=== PATIENT | male | born 1960 | race Caucasian/White ===

== ENCOUNTER 2019-10-12 07:38 | Day surgery (SDC) | payer OTHER ==
[~2019-10-12] VITALS: Ht 188 cm; Wt 112.0 kg
[~2019-10-12 07:38] MED LIST: ADDERALL 30 MG30 MG PO; BENAZEPRIL HCL20 MG PO; CYCLOBENZAPRINE10 MG PO; FLOVENT DISKUS50 MCG INH; HYDROCODON-ACE1 EAC8 PO; MOBIC15 MG PO; TRIAMTERENE-HC1 EAC1 PO
--- NOTE | 2019-10-12 10:31 | NUR ---
10/12/19 Jose1 Betty Del Valle 1025-PATIENT ARRIVED TO PACU ON 2L NC RR EVEN. LAYING LEFT LATERAL. PATIENT DROWSY AWAKE DENIES PAIN OR NAUSEA. ABDOMEN SOFT. IVF INFUSING
--- NOTE | 2019-10-12 11:19 | OR ---
[facility] [address], [place] [address] Signed DATE OF OPERATION: 10/12/2019 SURGEON: Tyson Sharma MD PREOPERATIVE DIAGNOSES: 1. Personal history of colonic polyps in 2006 and 2013. 2. Internal hemorrhoids. POSTOPERATIVE DIAGNOSES: 1. 5 mm sessile polyp next to ileocecal valve. 2. 4 mm polyp, proximal right colon. 3. 3 mm polyps x5 at 10-15 cm (rectum). 4. Minimal internal hemorrhoids. 5. Red blood-appearing fluid throughout colon. PROCEDURE: Colonoscopy with hot biopsy. ESTIMATED BLOOD LOSS: None. FINDINGS: Farhat appeared to have areas of red blood throughout his entire colon. Yet, we found no evidence of any bleeding and certainly no bloody fluid came through the ileocecal valve as we were working. INDICATIONS: Farhat is a 59-year-old gentleman, who has a personal history of adenomatous polyps in 2006 and in 2013. He has been on the five year schedule. He is known to have internal hemorrhoids as well. There is no family history of colon cancer or polyps. He said he is down 46 pounds since he injured his back. He does use hydrocodone 10 mg on a daily basis. However, he did well last time and so he wanted to go ahead with Versed and fentanyl on this occasion. In the office, I gave him a pamphlet on colonoscopy. We looked at that together in detail. He understands the nature of the test along with the risks including, but not limited to gas, bloating, crampy abdominal pain, bleeding, perforation requiring surgery, and missed diagnosis. We also reviewed the need for the IV conscious sedation. He had expressed understanding and wished to proceed. PROCEDURE NOTE: Farhat was taken into our endoscopy suite and placed in the left lateral decubitus Electronically Signed By: TYSON SHARMA MD 10/12/19 1119 PATIENT NAME: FARHAT PASTOR OPERATIVE REPORT DATE OF : 56 REPORT #: [id number] PHYSICIAN: TYSON SHARMA MD PCP: CHRISTOPHER QUIROZ MD REPORT IS CONFIDENTIAL AND NOT TO BE RELEASED WITHOUT AUTHORIZATION [facility] [address], [place] [address] Signed position. He was given a total of 12 mg of Versed and 200 mcg of fentanyl to cover the case. A digital rectal exam was performed and he does have a slightly enlarged, slightly indurated prostate gland. The adult colonoscope was introduced and advanced under direct visualization of the camera into the cecum itself. It took some extra sedation and abdominal compression to get the scope directly into the cecum. Interestingly, he seemed to have blood in pools throughout his colon. We spent quite a bit of time around the cecum and the ileocecal valve, and we never saw any fluid coming through the ileocecal valve. We irrigated out the cecum completely and there was no evidence of any issues in the cecum itself. We could easily see the appendiceal orifice and the ileocecal valve. The scope was slowly withdrawn and we removed the above mentioned polyps with the help of hot biopsy forceps without difficulty. He has no diverticulosis that we could see. No active bleeding from anywhere in the entire colon or rectum. Once in the rectum, the scope had been retroflexed and he does have [id number] internal hemorrhoid columns. After this, the gas was suctioned out and the colonoscope removed. Farhat tolerated procedure quite well. RECOMMENDATIONS: I will see Farhat back in my office in 7 to 14 days to review his results. He is not to take any aspirin or NSAIDs including his meloxicam for an entire week. Tyson Sharma MD ALB/MODL /[id number] cc: MD Christopher Panchal MD Copies: TYSON SHARMA MD, RUSSELL BARR MD ~ Electronically Signed By: TYSON SHARMA MD 10/12/19 1119 PATIENT NAME: FARHAT PASTOR OPERATIVE REPORT DATE OF : 56 REPORT #: [id number] PHYSICIAN: TYSON SHARMA MD PCP: CHRISTOPHER QUIROZ MD REPORT IS CONFIDENTIAL AND NOT TO BE RELEASED WITHOUT AUTHORIZATION
== END 2019-10-12 11:10 | disposition home or self-care (01) ==
LOC: OPS 07:38 → DS 07:42 → OPS 09:00 → DS 09:00 → OPS 11:10
PROVIDERS: Colon & Rectal Surgery
PROC: 0DBE8ZZ Excision of Large Intestine, Via Natural or Artificial Opening Endoscopic (ICD-10-PCS; 2019-10-12)
PROC: 0DBC8ZZ Excision of Ileocecal Valve, Via Natural or Artificial Opening Endoscopic (ICD-10-PCS; 2019-10-12)
PROC: 0DBK8ZZ Excision of Ascending Colon, Via Natural or Artificial Opening Endoscopic (ICD-10-PCS; principal; 2019-10-12 09:00)
DX: Z12.11 Encounter for screening for malignant neoplasm of colon (principal); D12.2 Benign neoplasm of ascending colon; D12.0 Benign neoplasm of cecum; K63.5 Polyp of colon; K64.8 Other hemorrhoids; E66.9 Obesity, unspecified; R73.03 Prediabetes; N40.0 Benign prostatic hyperplasia without lower urinary tract symptoms; Z86.010 Personal history of colon polyps; Z79.899 Other long term (current) drug therapy; Z79.51 Long term (current) use of inhaled steroids; Z98.890 Other specified postprocedural states; Z87.891 Personal history of nicotine dependence; Z88.0 Allergy status to penicillin
CPT/HCPCS: 99153; G0500; J2250; J3010; J7121

== ENCOUNTER 2023-04-10 00:05 | Emergency (ER) | payer OTHER ==
[~2023-04-10] VITALS: Ht 188 cm; Wt 113.1 kg
--- OUTSIDE RECORDS SUMMARY | 2023-04-10 00:08 | XMS ---
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 Ema has no Care Guidelines for this patient. Lluvia VISIT COUNT (12 MO.) 1 [facility] TOTAL 1 NOTE: Visits indicate total known visits. ED/C VISIT TRACKING (12 MO.) 04/10/2023 00:06 [facility] OR TYPE: Emergency COMPLAINT: - DIFFICULTY SWALLOWING INPATIENT VISIT TRACKING (12 MO.) No inpatient visits to display in this time frame [email or web address]
[2023-04-10] MEDS ORDERED: CYCLOBENZAPRINE10 MG PO (00:26)
[2023-04-10] MEDS ORDERED: MELOXICAM15 MG PO (00:26)
[2023-04-10] MEDS ORDERED: ADDERALL 15 MG15 MG PO (00:33)
[2023-04-10] MEDS ORDERED: PREDNISONE20 MG PO (00:50)
[2023-04-10 01:04] VITALS: BP 153/82
== END 2023-04-10 01:05 | disposition home or self-care (01) ==
LOC: ED 00:05
DX: R13.10 Dysphagia, unspecified (principal); I10 Essential (primary) hypertension; E11.9 Type 2 diabetes mellitus without complications; Z88.0 Allergy status to penicillin; Z87.891 Personal history of nicotine dependence
CPT/HCPCS: 70360; 96372; 99283-25; A9270; J1100; J1200

== ENCOUNTER 2024-09-20 14:27 | Emergency (ER) | payer MEDICARE, OTHER ==
[~2024-09-20] VITALS: Ht 188 cm; Wt 116.6 kg
[~2024-09-20 14:27] MED LIST changes: +ADDERALL 15 MG15 MG PO; +MELOXICAM15 MG PO; +PREDNISONE20 MG PO
[2024-09-20] MEDS ORDERED: DIPHTH,PERTUSS(ACELL),TET VAC 0.5 ML SYRINGE IM ONE (14:45)
[2024-09-20] MEDS ORDERED: OXYCODONE/APAP 5/325 TAB PO ONE (15:00)
[2024-09-20 17:11] VITALS: BP 139/90
== END 2024-09-20 17:12 | disposition home or self-care (01) ==
LOC: ED 14:27
DX: S61.214A Laceration without foreign body of right ring finger without damage to nail, initial encounter (principal); W31.2XXA Contact with powered woodworking and forming machines, initial encounter; I10 Essential (primary) hypertension; R73.03 Prediabetes; Z23 Encounter for immunization; Z87.891 Personal history of nicotine dependence; Z88.0 Allergy status to penicillin; Z79.899 Other long term (current) drug therapy
CPT/HCPCS: 12002; 73130; 90471; 90715; 99283-25